=== PATIENT | female | born 1995 | race Caucasian/White ===

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

== ENCOUNTER 2017-01-09 00:03 | Emergency (ER) | payer MEDICAID, OTHER ==
[~2017-01-09] VITALS: Ht 162.6 cm; Wt 45.0 kg
[2017-01-09 00:30] VITALS: BP 121/74
--- NOTE | 2017-01-09 01:34 | NUR ---
Patient to OF.
--- NOTE | 2017-01-09 01:40 | NUR ---
Dr. Garcia evaluating patient.
[2017-01-09] MEDS ORDERED: KETOROLAC 30 MG/ML VIAL IM ONE (01:45)
[2017-01-09] MEDS ORDERED: CLINDAMYCIN 600 MG/4 ML VIAL IM ONE (01:45)
[2017-01-09] MEDS ORDERED: HYDROcodone/APAP 5/325 MG 1 TAB TAB PO ONE (01:45)
--- NOTE | 2017-01-09 01:49 | NUR ---
PATIENT PRESENTS TO ED WITH C/O FACIAL SWELLING . PT STATES THE SWELLING STARTED THIS MORNING . DENIES N/V/D; SKIN IS PINK/WARM/DRY; AAOX4 WITH EVEN AND STEADY GAIT; LUNGS CLEAR BL; HR EVEN AND REGULAR; PT DENIES ANY FEVER, CP, SOB, OR COUGH AT THIS TIME; PATIENT STATES PAIN OF 9/10 AT THIS TIME; VSS; PATIENT POSITIONED FOR COMFORT; HOB ELEVATED; BEDRAILS UP X2; BED DOWN. ER MD MADE AWARE OF PT STATUS.
--- NOTE | 2017-01-09 01:49 | NUR ---
Patient to bed 08.
--- NOTE | 2017-01-09 02:15 | NUR ---
Patient discharged with v/s stable. Written and verbal after care instructions given and explained. Patient alert, oriented and verbalized understanding of instructions. Ambulatory with steady gait. All questions addressed prior to discharge. ID band removed. Patient advised to follow up with PMD. Rx of BACTRIM DS 800MG-160MG BID, NORCO 5MG-325, NAPROSYN 500MG PRN given. Patient educated on indication of medication including possible reaction and side effects. Opportunity to ask questions provided and answered.
[2017-01-09 02:17] VITALS: BP 119/71
== END 2017-01-09 02:15 | disposition home or self-care (01) ==
LOC: MED 00:03
DX: L02.01 Cutaneous abscess of face (principal); Z79.899 Other long term (current) drug therapy
CPT/HCPCS: 96372; 99284; J1885; J3490

== ENCOUNTER 2021-04-26 10:32 | Emergency (ER) | payer OTHER ==
[~2021-04-26] VITALS: Ht 162.6 cm; Wt 60.3 kg
[2021-04-26 10:37] VITALS: BP 109/66
--- NOTE | 2021-04-26 10:47 | NUR ---
PT AMBULATED TO ROOM 02
--- NOTE | 2021-04-26 10:48 | NUR ---
Patient ambulated with steady gait to bed 2.
--- NOTE | 2021-04-26 10:54 | NUR ---
25 Y/O FEMALE BIB SELF WITH A C/O SORE THROAT X 3 DAY AND C/O HEADACHE X TODAY. COVID TESED NEGATIVE 1 WWEK AGO. 6 MONTHS . PT STATES SHE HAD A NOSE BLEED, THEN LAID DOWN TO SLEEP AND COUGEDH BLOOD IN THIS MORNING. NARES APPEARS REDDENED WITHOUT DISCHARGE AT THIS TIME. DENIES N/V/D/CP. PMHX: DENIES ALLERGIES: DENIES HOME MEDS: DENIES
[2021-04-26 11:19] VITALS: BP 109/66
--- NOTE | 2021-04-26 11:19 | NUR ---
Patient discharged with v/s stable. Written and verbal after care instructions given and explained. Patient verbalized understanding. Ambulatory with steady gait. All questions addressed prior to discharge. Advised to follow up with PMD.
== END 2021-04-26 11:19 | disposition home or self-care (01) ==
LOC: MED 10:32
DX: O26.892 Other specified pregnancy related conditions, second trimester (principal); B34.9 Viral infection, unspecified; Z79.899 Other long term (current) drug therapy; Z3A.24 24 weeks gestation of pregnancy
CPT/HCPCS: 99281